=== PATIENT | male | born 1955 | race Asian ===

== ENCOUNTER 2019-08-17 14:24 | Emergency (ER) | payer OTHER ==
[~2019-08-17] VITALS: Ht 170.2 cm; Wt 67.1 kg
[~2019-08-17 14:24] MED LIST: AUGMENTIN 500-1 EACH PO; DIOVAN HCT 1601 EAC1 PO; LIPITOR10 MG PO
--- NOTE | 2019-08-17 14:40 | NUR ---
ED Nurse Note: [employer] reporting form faxed.
--- NOTE | 2019-08-17 14:40 | NUR ---
ED Nurse Note: Pt walked into ED for dog bite x2 on R leg. 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 both sites are CDI, no bleeding. Pt wound sites on R leg are cleaned. Pt is alert and ox4, ambulatory. [id number] has seen patient. VSS.
--- NOTE | 2019-08-17 14:41 | Emergency Room Report ---
History of Present Illness General Chief Complaint: Animal Bite Source: Patient Present Illness HPI Disclaimer: Please note that this report is being documented using DRAGON technology. This can lead to erroneous entry secondary to incorrect interpretation by the dictating instrument. HPI: 64-year-old male presents for dog bite to the right leg. 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 He was bitten on the right knee in the right lateral calf. No active bleeding. He applied pressure. Denied any significant skin tearing but there is 1 puncture wound. No prior history of bites. Cannot recall last tetanus. 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 Dog's vaccinations are unknown. PMH: Reviewed PSH: Reviewed Allergies: Reviewed Social Hx: Reviewed Allergies: Coded Allergies: No Known Allergies (Unverified , 04/01/12) COVID-19 Screening Contact w/high risk pt: No Recent Travel to affected area: No Experienced COVID-19 symptoms?: No Nursing Documentation-PMH Past Medical History: No History, Except For Hx Hypertension: Yes - high cholesterol Review of Systems All Other Systems: negative except mentioned in HPI Physical Exam Vital Signs Date Time Temp Pulse Resp B/P (MAP) Pulse Ox O2 Delivery O2 Flow Rate FiO2 08/17/19 14:30 97.9 67 20 160/90 (113) 95 Room Air General: Awake and alert, no acute distress HEENT: NC/AT. EOMI. Resp: Normal work of breathing Skin: There is a small puncture wound on the lateral aspect of the right calf as well as an abrasion over the right knee. No deep lacerations noted. No active bleeding. No surrounding edema or erythema. No active drainage. MSK: Normal tone and bulk. Moving all extremities. No obvious deformity. Patient ambulating without difficulty. Minor tenderness palpation over puncture wound on the calf. Neuro: Awake and alert. Mentating appropriately. Sensation intact over the lower extremities bilaterally. Medical Decision Making Diagnostic Impression: Primary Impression: Dog bite ER Course 64-year-old male presents for evaluation of dog bite to the right leg. No active bleeding, no significant lacerations with there is a small puncture wound. Tetanus will be updated, the wound was cleaned and the patient will be started on Augmentin. First dose given in the emergency department. Will report bite to [place]. Discussed wound care with patient and need to follow-up with his PMD as well as reasons to return to the emergency department. He understands and agrees with treatment plan will be discharged home. Last Vital Signs Date Time Temp Pulse Resp B/P (MAP) Pulse Ox O2 Delivery O2 Flow Rate FiO2 08/17/19 14:30 97.9 67 20 160/90 (113) 95 Room Air Disposition: HOME, SELF-CARE Condition: Stable Scripts Amoxicillin/Potassium Clav 875-125* (AUGMENTIN 875-125 TABLET*) 1 Each Tablet 1 TAB ORAL TWICE A DAY for 7 Days, #14 TAB Prov: Abiel Sauceda MD 08/17/19 Abiel Sauceda MD August 17, 2019 14:41
[2019-08-17] MEDS ORDERED: AUGMENTIN 875-1 EAC1 ORAL (14:43)
[2019-08-17 14:45] VITALS: BP 150/88
[2019-08-17] MEDS ORDERED: Augmentin 875mg Tab ORAL ONE (14:45)
[2019-08-17] MEDS ORDERED: Tetanus/Diptheria/Pertussis IM ONE (14:45)
--- NOTE | 2019-08-17 14:57 | NUR ---
ER DISCHARGE NOTE: Patient is cleared to be discharged per ERMD, pt is aox4, on room air, with stable vital signs. pt was given dc and prescription instructions, pt was able to verbalize understanding, pt id band removed. pt is able to ambulate with steady gait. pt took all belongings.
[2019-08-17 15:02] VITALS: BP 144/84
== END 2019-08-17 15:03 | disposition home or self-care (01) ==
LOC: EMR 14:49
DX: S81.851A Open bite, right lower leg, initial encounter (principal); S80.211A Abrasion, right knee, initial encounter; W54.0XXA Bitten by dog, initial encounter; Y92.9 Unspecified place or not applicable; Z23 Encounter for immunization; E78.00 Pure hypercholesterolemia, unspecified
CPT/HCPCS: 90471; 90715; 99282